=== PATIENT | male | born 1985 | race Caucasian/White ===

== ENCOUNTER 2017-01-08 17:49 | Emergency (ER) | payer MEDICAID ==
[~2017-01-08] VITALS: Ht 193 cm; Wt 113.4 kg
[~2017-01-08 17:49] MED LIST: IBUPROFEN800 MG PO; TAMIFLU 75MG CA75 MG PO; ZITHROMAX Z PA250 MG PO
[2017-01-08] MEDS ORDERED: HYDROCODONE/ACE1 TA5 PO (18:00)
[2017-01-08] MEDS ORDERED: BUSPAR 5MG TAB5 MG PO (18:00)
[2017-01-08] MEDS ORDERED: FLEXERIL10 MG PO (18:13)
[2017-01-08] MEDS ORDERED: IBUPROFEN800 MG PO (18:35)
--- NOTE | 2017-01-08 18:36 | Urgent Treatment Center Report ---
History of Present Issue Date/Time Seen by Provider 01/08/17 1802 Visit Reason Pt arrived:Walked Presenting Problem:PT HAS BEEN UNDER RT SHOULDER BLADE. PAIN INCREASES WITH MOVEMENT AND PRESSURE APPLIED. Location if Accident: Onset of symptoms date/time:/ or onset unknown for:MEDICAL HX UNKNOWN Have you (or family members/close friends) recently traveled outside the [place]? N If Yes, where/when: Have you had exposure to infectious disease within the past month? TB? Other? Specify: Patient state that he has been having pain around and under right shoulder blade area. State that pain increases with movement and tender to touch States that feels tight and hurts when he moves. States that when he stretches it helps with the pain for a moment then it tightens back up again feels like a muscle spasm ALLERGIES Coded Allergies: Penicillins (Mild, 11/24/16) codeine (Mild, 11/24/16) Home Medications Active Scripts Azithromycin (Zithromycin (Z-JOSELIN) 250MG Tab) 250 MG PO DAILY #6 TAB Prov: 11/24/16 Ibuprofen (Ibuprofen 800MG) 800 MG PO QIDP PRN pain #30 TAB Prov: 11/24/16 Reported Medications Buspirone Hcl (Buspirone HCl) 5 MG PO DAILY HYDROCODONE/ACETAMINOPHEN (Lortab 10-325 (generic) Tablet) 1 TAB PO Q6HP PRN KNEE PAIN History Medical History General CAD? No Angina: No [place]: No Hypertension? No Hyperlipidemia? No CHF? No DVT? No PE? No COPD? No Asthma? Yes Anemia? No GERD? No Gastric ulcers? No GI Bleed? No Hernia? No Thyroid Problems? No Hypothyroidism? No CVA? No Seizures? No Diabetes? No Renal Insuffiency? No UTI? No Stones? No BPH? No GB Disease: No Nephritic Syndrome? No Asplenia? No Hepatitis? No Sickle Cell Disease? No Arthritis? No Migraines? No Cataracts? No Glaucoma? No MRSA? No HIV? No TB? No Anxiety? No Depression? No Cancer? No More? No Immunization HX DT/Tetanus 1-4 YRS Flu NEVER Pneumonia NEVER Surgical Hx Previous Surgery?Y URETHERAL KNEE LEFT SURG Family History Family HX Diabetes Yes CAD Yes Hypertension Yes Hyperlipidemia Yes Cancer No TB Yes Social History Smoking Hx Smoker: Current Every Day Smoker Tobacco: Yes Type Cigarettes Packs/day < 1 Pack Alcohol Alcohol: No Review of Systems All Other Systems Reviewed and Negative Musculoskeletal muscle pain, muscle stiffness Physical Exam Vital Signs Vital Signs Date Time Temp Pulse Resp B/P Pulse O2 O2 Flow FiO2 Ox Delivery Rate 01/08 181 20 01/08 1756 99.1 64 20 121/69 100 General Appearance normal appearance, WD/WN, no apparent distress Respiratory Status Yes: trachea midline, chest symmetrical, non tender chest. No: respiratory distress. 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 No Results/Orders Current Medication Orders Sig/Tammie Start time Last Medication Dose Route Stop Time Status Admin Ketorolac 60 MG ONCE ONE 01/08 1815 DC 01/08 Tromethamine IM 01/09 1816 181 Orphenadrine Citrate 60 MG ONCE ONE 01/08 181 DC 01/08 IM 01/08 181 1811 Orphenadrine Citrate 0 .STK-MED ONE 01/08 1807 DC .ROUTE Ketorolac 0 .STK-MED ONE 01/08 180 DC Tromethamine .ROUTE Departure Departure Time of Disposition 1835 Disposition DC Home or Self Care(routine) Clinical Impression Primary Impression: Muscle spasm Condition STABLE Patient Instructions DI for Muscle Spasm, DI for Muscle Strain Additional Instructions Take medication as prescribed Return if needed Follow up with family doctor Discharge Counseling Counseled pt/family regarding diagnosis, medications/RX, home care, follow up needs Prescriptions Current Visit Scripts Cyclobenzaprine Hcl (Flexeril) 10 MG PO TID #18 TAB Ibuprofen (Ibuprofen 800MG) 800 MG PO QIDP PRN pain #30 TAB at 1835
[2017-01-08 18:44] VITALS: BP 121/69
--- OUTSIDE RECORDS SUMMARY | 2017-01-10 21:55 | External Medical Summary Rpt ---
Author Author , BENTON Hsu BENTON Address Unknown Phone [email or web address] Care Team Providers Care Board Mill Supervisor Name Role Phone A Alanis WARD MD PSC, A Unavailable Unavailable Alanis WARD MD PSC MARV ANTOINETTE, Unavailable Unavailable MARV ANTOINETTE MARV ANTOINETTE, Unavailable Unavailable MARV ANTOINETTE [facility], Unavailable Unavailable [facility], Unavailable Unavailable [facility] HARSHA CORBY, HARSHA Unavailable Unavailable [facility] HARSHA CORBY, HARSHA Unavailable Unavailable [facility] Un[facility], [facility] KILPELA, KILPELA Unavailable Unavailable KILPELA JEA, KILPELA Unavailable Unavailable JEA Roberta Mcleod MD, Unavailable Unavailable Roberta MACHADO GRE, Unavailable Unavailable JEANNETTE BASS, Unavailable Unavailable JEANNETTE BASS JOAQUIN, JOQAUIN Unavailable Unavailable JOAQUIN KIAH, JOAQUIN KIAH Unavailable Unavailable JOAQUIN KIAH, JOAQUIN KIAH Unavailable Unavailable Purpose Continuity of Care Document - 06-27-2013 through 2016 Problems Code Diagnosis DOS Provider Status I10 ESSENTIAL 11-28-2016 A Alanis WARD PRIMARY PSC HYPERTENSIO N [id number] BURN SECOND 11-28-2016 A Alanis WARD DEGREE RT PSC FOOT SUBSEQUENT ENCOUNTER L559 SUNBURN 11-24-2016 [facility] J309 ALLERGIC 10-14-2016 A Alanis WARD RHINITIS PSC UNSPECIFIED Z6831 BODY MASS 10-14-2016 A Alanis WARD INDEX BMI [facility] 31.0-31.9 ADULT Z2089 CONTACT W09-05-2016 [facility] COMMUNICABL E DISEASE Z23 ENCOUNTER 05-08-2016 A Alanis LINDA MD PSC IMMUNIZATIO N J069 ACUTE UPPER 02-08-2016 Basil WARD MD PSC RESPIRATORY INFECTION UNSPECIFIED G894 CHRONIC 08-17-2015 A Alanis WARD PAIN PSC SYNDROME M170 BILATERAL 07-14-2015 A Alanis WARD PRIMARY PSC OSTEOARTHRI TIS OF KNEE F44230 OTHER LONG 07-14-2015 [facility] CURRENT S DRUG THERAPY J40 BRONCHITIS 05-17-2015 A Alanis REDDING MD PSC SPECIFIED ACUTE OR CHRONIC J9801 ACUTE 05-08-2015 A Alanis WARD BRONCHOSPAS PSC M 3384 CHRONIC 01-12-2015 A Alanis WARD PAIN PSC SYNDROME 4659 ACUTE URIS 01-12-2015 A Alanis WARD OF PSC UNSPECIFIED SITE 4779 ALLERGIC 01-12-2015 A Alanis WARD RHINITIS PSC CAUSE UNSPECIFIED 7862 COUGH 01-12-2015 A Alanis WARD MD PSC 21358 OSTEOARTHRO 10-18-2014 A Alanis WARD SIS UNSPEC PSC WHETHER GEN/LOC LOWER LEG V720 EXAMINATION 09-14-2013 JEANNETTE OF EYES GRE AND VISION 305.1 305.1 06-28-2013 Frederick TOBACCO USE [facility] 789.01 789.01 06-28-2013 [facility] PAIN, RIGHT Hospital UPPER QUADRANT 789.06 789.06 06-28-2013 [facility] EPIGASTRIC 49062 ABDOMINAL 06-28-2013 [facility] PAIN, EPIGASTRIC 49968 ABDOMINAL 06-27-2013 HARSHA MIC PAIN, UNSPECIFIED SITE 7934 NONSPECIFIC 06-27-2013 MARV ABN ANTOINETTE FINDING RAD & OTH EXAM GI TRACT Allergies, Adverse Reactions, Alerts Type Drug Allergy Adverse Reaction to Substance Substance Reaction Severity Beta-Lactam Unknown Unknown Penicillin Unknown Unknown Codeine Unknown Mild Penicillin G Unknown Unknown Grape Extract Unknown Mild Medications Na ND Rx Da Fi Fi Am Da Di Ph RX Ph St me C No te ll ll ou ys ag ar # ys at rm s nt no ma ic us Or Da si cy ia de te s n re d HY 00 06 07 [address] 40 -2 -[address] ti OC 60 5- 1- 00 00 SI ve OD 12 20 20 0 49 DE ON 50 17 17 24 -A 5 57 PH CE AR TA MA MT CY NO PH OF N CY 10 NT -3 HI 25 AN A IN C IB 68 06 07 30 8 00 WA Ac UP 64 -1 -1 .0 00 L- ti RO 50 8- 4- 00 07 MA ve FE 53 20 20 49 RT N 15 17 17 40 80 4 88 PH 0 AR MG MA CY TA BL #5 ET 91 AZ 59 06 07 6. 5 00 WA Ac IT 76 -1 -1 00 00 L- ti HR 23 8- 4- 0 07 MA ve OM 06 20 20 49 RT YC 00 17 17 40 IN 1 87 PH AR 25 MA 0 CY MG #5 TA 91 BL ET BI 00 06 07 30 30 00 EA Ac SO 18 -0 -[address] ti NE 50 8- 7- 00 00 SI ve OL 77 20 20 48 DE OL 13 17 17 66 0 18 PH FU AR MA MA RA CY TE 5 OF CY MG NT HI TA AN B A IN C HY 00 05 06 12 [address] 40 -2 -[address] ti OC 60 6- 3- 00 00 SI ve OD 12 20 20 0 48 DE ON 50 17 17 90 -A 5 66 PH CE AR TA MA MT CY NO PH OF N CY 10 NT -3 HI 25 AN A IN C BI 00 05 06 30 30 00 EA Ac SO 18 -0 -[address] ti NE 50 8- 2- 00 00 SI ve OL 77 20 20 48 DE OL 13 17 17 66 0 18 PH FU AR MA MA RA CY TE 5 OF CY MG NT HI TA AN B A IN C NE 00 05 06 20 10 00 EA Ac ED 60 -0 -[address] ti NI 35 8- 2- 00 00 SI ve SO 33 20 20 48 DE NE 93 17 17 66 2 17 PH 20 AR MA MG CY TA OF BL CY ET NT HI AN A IN C HY 00 04 05 12 [address] 40 -2 -[address] ti OC 60 8- 6- 00 00 SI ve OD 12 20 20 0 48 DE ON 50 17 17 54 -A 5 10 PH CE AR TA MA MT CY NO PH OF N CY 10 NT -3 HI 25 AN A IN C HY 00 03 04 [address] 40 -3 -[address] ti OC 60 0- 8- 00 00 SI ve OD 12 20 20 0 48 DE ON 50 17 17 17 -A 5 51 PH CE AR TA MA MT CY NO PH OF N CY 10 NT -3 HI 25 AN A IN C OS 47 03 04 10 10 00 EA Ac EL 78 -3 -[address] ti TA 10 0- 8- 00 00 SI ve MT 47 20 20 48 DE 01 17 17 18 R 3 92 PH PH AR OS MA CY 75 OF MG CY NT CA HI PS AN UL A E IN C HY 00 02 03 [address] 40 -2 -[address] ti OC 60 7- 4- 00 00 SI ve OD 12 20 20 0 47 DE ON 50 17 17 77 -A 5 60 PH CE AR TA MA MT CY NO PH OF N CY 10 NT -3 HI 25 AN A IN C HY 00 01 02 [address] 40 -2 -[address] ti OC 60 8- 4- 00 00 SI ve OD 12 20 20 0 47 DE ON 50 17 17 40 -A 5 96 PH CE AR TA MA MT CY NO PH OF N CY 10 NT -3 HI 25 AN A IN C HY 00 12 01 [address] 40 -2 -[address] ti OC 60 9- 7- 00 00 SI ve OD 12 20 20 0 47 DE ON 50 16 17 06 -A 5 08 PH CE AR TA MA MT CY NO PH OF N CY 10 NT -3 HI 25 AN A IN C FA 63 01 0 No MO 32 -2 TI 30 0- Lo DI 73 20 ng NE 91 14 er 2 20 Ac ti MG ve /2 ML AL BA [address] 40 -2 ER 91 0- Lo IO [address] 60 14 er AT 5 IC Ac ti SA ve LI NE AL ME 00 01 0 No TO 40 -2 CL 93 0- Lo OP 41 20 ng RA 40 14 er MT 1 DE Ac ti 10 ve MG /2 ML AL ON 00 01 0 No DA 64 -2 NS 16 0- Lo ET 08 20 ng RO 02 14 er N 5 HC Ac L ti 4 ve MG /2 ML AL Mo 00 01 0 No rp 40 -2 hi 91 0- Lo ne 25 20 ng 83 14 er 4M 0 G/ Ac Ml ti ve Sy ri ng e Immunization Name Date Rout CVX Reac Dose Comm Prov Is Faci e tion ent ider Refu lity Give sed n IIV4 11-3 150 A C No A C 0-20 WRIG WRIG VACC 16 HT HT MD ROMERO PRES PSC PSC RV FREE 0.5 ML FOR IM USE IIV3 11-3 140 KILP No A C 0-20 NESTOR WRIG VACC 15 JEA HT PRES PSC ERVA TIVE FREE 0.5 ML DOSA GE IM USE Vital Signs 06-28-2013 00:53 Name Value Interpretat Reference Comment ion Range Body 98.2 [degF] Temperature BP 97 mm[Hg] Diastolic BP Systolic 164 mm[Hg] Heart 74 /min Rate/Pulse O2% 98 % Respiratory 20 /min Rate 06-27-2013 23:40 Name Value Interpretat Reference Comment ion Range BP 68 mm[Hg] Diastolic BP Systolic 139 mm[Hg] Heart 81 /min Rate/Pulse O2% 99 % Respiratory 20 /min Rate Results Labs Lab Lab Date Result Refere Interp Status Commen Order Detail nces retati t Range on COMPREHENSIVE METABOLIC PANEL (06-27-2013 23:30) Glucose 114 74-106 complet 014 mg/dL ed Bld-mCn 23:30 c BUN 10 7-18 complet Bld-mCn 014 mg/dL ed c 23:30 Creat 1.1 0.8-1.3 complet SerPl-m 014 mg/dL ed Cnc 23:30 Creat 156 50-200 complet Cl 014 ML/MIN ed predict 23:30 ed SerPl C-G-vRa te GFR/BSA 79 Greater complet .pred 014 ML/MIN than ed SerPl 23:30 60 Schwart z-vRate Sodium 141 136-145 complet SerPl-s 014 mmoL/L ed Cnc 23:30 Potassi 4.2 3.5-5.1 complet um 014 mmoL/L ed SerPl-s 23:30 Cnc Chlorid 102 98-107 complet e 014 mmoL/L ed SerPl-s 23:30 Cnc CO2 30 21.0-32 complet SerPl-s 014 mmoL/L .0 ed Cnc 23:30 Calcium 9.3 8.5-10. complet 014 mg/dL 1 ed SerPl-m 23:30 Cnc Prot 7.8 6.4-8.2 complet SerPl-m 014 gm/dL ed Cnc 23:30 Albumin 4.6 3.4-5.0 complet 014 gm/dL ed SerPl-m 23:30 Cnc Globuli 3.2 1.3-3.2 complet n 014 gm/dL ed Ser-mCn 23:30 c Albumin 1.4 UNK 1.1-1.8 complet /Glob 014 ed SerPl-m 23:30 Rto Bilirub 0.5 0.2-1.0 complet 014 mg/dL ed SerPl-m 23:30 Cnc AST 17 U/L 15-37 complet SerPl-c 014 ed Cnc 23:30 ALT 39 U/L 12-78 complet SerPl-c 014 ed Cnc 23:30 ALP 117 U/L 50-136 complet SerPl-c 014 ed Cnc 23:30 Amylase SerPl-cCnc (06-27-2013 23:30) Amylase 48 U/L 25-115 complet 014 ed SerPl-c 23:30 Cnc LIPASE (06-27-2013 23:30) LIPASE 92 U/L 73-393 complet 014 ed 23:30 CBC with AUTO DIFF (06-27-2013 23:30) WBC # 06-27-2 10.5 4.8-10. complet Bld 014 K/MM3 8 ed Auto 23:30 RBC # 06-27-2 5.88 4.6-6.2 complet Bld 014 M/mm3 ed Auto 23:30 Hgb 06-27- 16.9 14.1-18 complet Bld-mCn 014 g/dL .0 ed c 23:30 Hct Fr 50.7 % 42.0-52 complet Bld 014 .0 ed 23:30 MCV RBC 06-27- 86.2 fl 82.2-97 complet 014 .8 ed 23:30 MCH RBC 06-27-2 28.8 pg 27-31.2 complet Qn 014 ed Auto 23:30 MEAN 06-27- 33.5 31.8-35 complet CORPUSC 014 g/dl .4 ed ULAR 23:30 HGB CONC RDW RBC 06-27-2 14.0 % 11.5-17 complet Auto 014 .5 ed 23:30 Platele 06-27- 198 142-424 complet t Bld 014 K/mm3 ed Ql 23:30 Manual MEAN 06-27-2 9.5 fl 7.4-10. complet PLATELE 014 4 ed T 23:30 VOLUME Granulo 06-27-2 71.1 % 37.0-80 complet cytes 014 .0 ed Fr Bld 23:30 Auto LYMPH % --2 22.8 % 10-50 complet 014 ed 23:30 Monocyt -19-2 4.9 % 1.7-9.3 complet es Fr 014 ed Bld 23:30 Auto Eosinop -19-2 1.0 % 0.1-12. complet hil Fr 014 0 ed Bld 23:30 Auto Basophi 06-27-2 0.2 % 0.1-2.0 complet ls Fr 014 ed Bld 23:30 Auto Granulo 06-27-2 7.4 1.3-8.0 complet cytes # 014 K/mm3 ed Bld 23:30 Auto Lymphoc 06-27-2 2.4 0.7-4.5 complet ytes Fr 014 K/mm3 ed Bld 23:30 Auto Monocyt 06-27-2 0.5 0.1-1.0 complet es # 014 K/mm3 ed Bld 23:30 Auto Eosinop 06-27-2 0.1 0.0-0.4 complet hil # 014 K/mm3 ed Bld 23:30 Auto Basophi 19-2 0.0 0-0.2 complet ls # 014 K/MM3 ed Bld 23:30 Auto URINALYSIS/COMPLETE (06-27-2013 23:30) URINE 06-27- YELLOW YELLOW complet COLOR 014 ed 23:30 URINE 06-27- CLEAR CLEAR complet APPEARA 014 ed NCE 23:30 URINE NEGATIV NEG complet GLUCOSE 014 E ed - 23:30 DIPSTIC K URINE 06-27-2 NEGATIV NEG complet BILIRUB 014 E ed IN - 23:30 DIPSTIC K URINE 06-27-2 NEGATIV NEG complet KETONE 014 E mg/dL ed 23:30 URINE 06-27-2 1.015 1.005-1 complet SPECIFI 014 UNK .030 ed C 23:30 GRAVITY URINE TRACE-I NEG complet BLOOD 014 NTACT ed 23:30 URINE 06-27- 6.0 UNK 5.0-8.5 complet PH 014 ed 23:30 URINE NEGATIV NEG complet PROTEIN 014 E mg/dL ed - 23:30 DIPSTIC K URINE 0.2 NEG complet UROBILI 014 E.U./dL ed NOGEN - 23:30 DIPSTIC K URINE NEGATIV NEG complet NITRATE 014 E ed - 23:30 DIPSTIC K URINE NEGATIV NEG complet LEUK 014 E ed ESTERAS 23:30 E URINE 3-5 0 complet RBC 014 rbc/hpf ed 23:30 URINE OCC O complet WBC 014 wbc/hpf ed 23:30 Procedures Procedure DOS Code Location Performer Comment THERAPEUT 26087 A C KILPELA IC 7 ED ROMERO PROPHYLAC PSC TIC/DX INJECTION SUBQ/IM INJ J0702 A C KILPELA BETAMETHA 7 ED ROMERO SONAlexy PSC ACETATE & PHOSPHATE 3 MG INJECTION J1030 A C KILPELA 7 ED ROMERO METHYLPRE PSC DNISOLONE ACETATE 40 MG IM ADM 31462 A C A C PRQ ID 6 ED WARD MD SUBQ/IM PSC PSC NJXS 1 VACCINE IIV4 VACC 45030 A C A C PRESRV 6 ED WARD MD FREE 0.5 PSC PSC ML FOR IM USE DRUG TEST 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;I IES IES NSTRUMENT ED CHEMISTRY ANLYZER DRUG TST G0477 A C JOAQUIN KIAH PRESUMP;C 6 ED ROMERO PBL BEING PSC READ DC OPT OBV ONLY DRUG TST G0483 [facility]OS DEFINITV [address] ID IES IES METH P DAY 22/MORE DR CL INJ J0702 A C KILPELA BETAMETHA 5 ED SNOWDEN PSC ACETATE & PHOSPHATE 3 MG THERAPEUT 51919 A C KILPELA IC 5 ED ROMERO JEBasil PROPHYLAC PSC TIC/DX INJECTION SUBQ/IM THERAPEUT 42341 A C KILPELA IC 5 ED ROMERO JEBasil PROPHYLAC PSC TIC/DX INJECTION SUBQ/IM IM ADM 11594 A C KILPELA PRQ ID 5 ED ROMERO JEA SUBQ/IM PSC NJXS 1 VACCINE IIV3 VACC 65577 A Alanis PRAKASH 5 ED SORIA PRESERVAT PSC MELLISSA FREE 0.5 ML DOSAGE IM USE INJECTION J1030 A Alanis PRAKASH 5 ED SORIA METHYLPRE PSC DNISOLONE ACETATE 40 MG INJECTION J1030 A Alanis PRAKASH 5 ED SORIA METHYLPRE PSC DNISOLONE ACETATE 40 MG INJ J0702 A Alanis PRAKASH BETAMETHA 5 ED ROMERO JEA SONE PSC ACETATE & PHOSPHATE 3 MG THERAPEUT 57751 A Alanis PRAKASH IC 5 ED SORIA PROPHYLAC PSC TIC/DX INJECTION SUBQ/IM DETERMINA 86510 [facility] 4 GRE GRE REFRACTIV E STATE OPHTH 15280 [facility] 4 GRE GRE XM&EVAL COMPRE NEW PT 1/> VST RADEX ABD 46447 MARV MARV COMPL 4 ANTOINETTE ANTOINETTE AQT ABD W/S/E/D VIEWS 1 VIEW CH Encounters Encounter Start End Date Code Location Performer Type Date OFFICE 78350 A Alanis DENNEY 7 7 ED ROMERO T VISIT [facility] 15 MINUTES [facility]OSP[facility] T OFFICE 09704 A Alanis DENNEY 7 7 ED ROMERO T VISIT PSC 15 MINUTES OFFICE 41866 [facility]LE[facility]IR[facility] 7 [facility] T VISIT 5 INC MINUTES [facility] T OFFICE 68428 A Alanis VILLASENOR 6 6 ED ROMERO T VISIT PSC 15 MINUTES OFFICE 98158 A Alanis VILLASENOR 6 6 ED ROMERO T VISIT PSC 15 MINUTES OFFICE 56160 A Alanis VILLASENOR 6 6 ED ROMERO T VISIT PSC 15 MINUTES OFFICE 37165 A C KILPELA OUTPATIEN 5 5 ED SORIA T VISIT PSC 15 MINUTES OFFICE 48081 A C KILPELA OUTPATIEN 5 5 ED SORIA T VISIT PSC 15 MINUTES OFFICE 08363 A C KILPELA OUTPATIEN 5 5 ED SORIA T VISIT PSC 15 MINUTES OFFICE 22648 A C KILPELA OUTPATIEN 5 5 ED SORIA T VISIT PSC 15 MINUTES OFFICE 85473 A C JOAQUIN KIAH OUTPATIEN 5 5 ED ROMERO T VISIT PSC 15 MINUTES OFFICE 98962 A C JOAQUIN KIAH OUTPATIEN 4 4 ED ROMERO T VISIT PSC 10 MINUTES OFFICE 55410 JOAQUIN KIAH JOAQUIN KIAH OUTPATIEN 4 4 T VISIT 15 MINUTES OFFICE 03963 JOAQUIN KIAH JOAQUIN KIAH OUTPATIEN 4 4 T VISIT 15 MINUTES OFFICE 11496 JOAQUIN KIAH JOAQUIN KIAH OUTPATIEN 4 4 T VISIT 15 MINUTES OFFICE 66056 JOAQUIN KIAH JOAQUIN KIAH OUTPATIEN 4 4 T VISIT 15 MINUTES Emergency PEARL Mcleod MD (ER) 4 23:13 4 00:56 [facility] EMERGENCY 84587 HARSHA MCLEOD 4 4 CORBY CORBY DEPARTMEN T VISIT HIGH/URGE NT SEVERITY
--- OUTSIDE RECORDS SUMMARY | 2017-01-10 21:55 | External Medical Summary Rpt ---
Author Author , BENTON Hsu BENTON Address Unknown Phone [email or web address] Care Team Providers Care Sap Grc Security Name Role Phone A Alanis WARD MD [...] JEANNETTE BASS, Unavailable Unavailable JEANNETTE BASS JOAQUIN, JOAQUIN Unavailable Unavailable JOAQUIN KIAH, JOAQUIN KIAH Unavailable Unavailable JOAQUIN KIAH, JOAQUIN KIAH Unavailable Unavailable Purpose Continuity of Care Document - 06-27-2013 through 2016 Problems Code Diagnosis DOS Provider Status I10 ESSENTIAL 11-28-2016 A Alanis WARD PRIMARY PSC HYPERTENSIO N [id number] BURN SECOND 11-28-2016 A Alanis WARD DEGREE RT PSC FOOT SUBSEQUENT ENCOUNTER L559 SUNBURN 11-24-2016 [facility] J309 ALLERGIC 10-14-2016 A Alanis WARD RHINITIS PSC UNSPECIFIED Z6831 BODY MASS 10-14-2016 A Alanis WARD INDEX BMI [facility] 31.0-31.9 ADULT Z2089 CONTACT W09-05-2016 [facility] COMMUNICABL E DISEASE Z23 ENCOUNTER 05-08-2016 A Alanis LINDA MD PSC IMMUNIZATIO N J069 ACUTE UPPER 02-08-2016 Basil WARD MD PSC RESPIRATORY INFECTION UNSPECIFIED G894 CHRONIC 08-17-2015 A Alanis WARD PAIN PSC SYNDROME M170 BILATERAL 07-14-2015 A Alanis WARD PRIMARY PSC OSTEOARTHRI TIS OF KNEE L71460 OTHER LONG 07-14-2015 ETH[facility] TERM LABORATORIE CURRENT [...] COUGH 01-12-2015 A Alanis WARD MD PSC 86818 OSTEOARTHRO 10-18-2014 A Alanis WARD SIS UNSPEC PSC WHETHER GEN/LOC LOWER LEG V720 EXAMINATION 09-14-2013 JEANNETTE OF EYES GRE AND VISION 305.1 305.1 06-28-2013 Norris TOBACCO USE [facility] 789.01 789.01 06-28-2013 [facility] PAIN, RIGHT Hospital UPPER QUADRANT 789.06 789.06 06-28-2013 [facility] EPIGASTRIC 00728 ABDOMINAL 06-28-2013 [facility] PAIN, EPIGASTRIC 24525 ABDOMINAL 06-27-2013 HARSHA MIC PAIN, UNSPECIFIED SITE [...] 5 57 PH CE AR TA MA MD CY NO PH OF N CY 10 [...] 18 -0 -[address] ti NM 50 8- 7- 00 00 SI ve [...] 5 66 PH CE AR TA MA MD CY NO PH OF N CY 10 NT -3 HI 25 AN A IN C BI 00 05 06 30 30 00 EA Ac SO 18 -0 -[address] ti NM 50 8- 2- 00 00 SI ve OL 77 20 20 48 DE OL 13 17 17 66 0 18 PH FU AR MA MA RA CY TE 5 OF CY MG NT HI TA AN B A IN C NM 00 05 06 20 10 00 EA [...] 5 10 PH CE AR TA MA MD CY NO PH OF N CY 10 NT -3 HI 25 AN A IN C HY 00 03 04 [address] 40 -3 -[address] ti OC 60 0- 8- 00 00 SI ve OD 12 20 20 0 48 DE ON 50 17 17 17 -A 5 51 PH CE AR TA MA MD CY NO PH OF N CY 10 NT -3 HI 25 AN A IN C OS 47 03 04 10 10 00 EA Ac EL 78 -3 -[address] ti TA 10 0- 8- 00 00 SI ve MD 47 20 20 48 DE 01 17 [...] 5 60 PH CE AR TA MA MD CY NO PH OF N CY 10 NT -3 HI 25 AN A IN C HY 00 01 02 [address] 40 -2 -[address] ti OC 60 8- 4- 00 00 SI ve OD 12 20 20 0 47 DE ON 50 17 17 40 -A 5 96 PH CE AR TA MA MD CY NO PH OF N CY 10 NT -3 HI 25 AN A IN C HY 00 12 01 [address] 40 -2 -[address] ti OC 60 9- 7- 00 00 SI ve OD 12 20 20 0 47 DE ON 50 16 17 06 -A 5 08 PH CE AR TA MA MD CY NO PH OF N CY 10 [...] 41 20 ng RA 40 14 er MD 1 DE Ac ti 10 ve MG [...] Procedure DOS Code Location Performer Comment THERAPEUT 19989 A C KILPELA IC 7 ED ROMERO PROPHYLAC PSC TIC/DX INJECTION SUBQ/IM INJ J0702 A C KILPELA BETAMETHA 7 ED ROMERO SONAlexy PSC ACETATE & PHOSPHATE 3 MG INJECTION J1030 A C KILPELA 7 ED ROMERO METHYLPRE PSC DNISOLONE ACETATE 40 MG IM ADM 54587 A C A C PRQ ID 6 ED WARD MD SUBQ/IM PSC PSC NJXS 1 VACCINE IIV4 VACC 19939 A C A C PRESRV 6 ED [...] PSC ACETATE & PHOSPHATE 3 MG THERAPEUT 04492 A C KILPELA IC 5 ED ROMERO JEBasil PROPHYLAC PSC TIC/DX INJECTION SUBQ/IM THERAPEUT 75282 A C KILPELA IC 5 ED ROMERO JEBasil PROPHYLAC PSC TIC/DX INJECTION SUBQ/IM IM ADM 94993 A C KILPELA PRQ ID 5 ED ROMERO JEA SUBQ/IM PSC NJXS 1 VACCINE IIV3 VACC 75506 A Alanis PRAKASH 5 ED SORIA PRESERVAT PSC MELLISSA FREE 0.5 ML DOSAGE IM USE INJECTION J1030 A Alanis PRAKASH 5 ED SORIA METHYLPRE PSC DNISOLONE ACETATE 40 MG INJECTION J1030 A Alanis PRAKASH 5 ED SORIA METHYLPRE PSC DNISOLONE ACETATE 40 MG INJ J0702 A Alanis PRAKASH BETAMETHA 5 ED ROMERO JEA SONE PSC ACETATE & PHOSPHATE 3 MG THERAPEUT 88119 A Alanis PRAKASH IC 5 ED SORIA PROPHYLAC PSC TIC/DX INJECTION SUBQ/IM DETERMINA 34382 [facility] 4 GRE GRE REFRACTIV E STATE OPHTH 56674 [facility] 4 GRE GRE XM&EVAL COMPRE NEW PT 1/> VST RADEX ABD 06386 MARV MARV COMPL 4 ANTOINETTE ANTOINETTE AQT ABD W/S/E/D VIEWS 1 VIEW CH Encounters Encounter Start End Date Code Location Performer Type Date OFFICE 98790 A Alanis DENNEY 7 7 ED ROMERO T VISIT [facility] 15 MINUTES [facility] T OFFICE 45993 A Alanis DENNEY 7 7 ED ROMERO T VISIT PSC 15 MINUTES OFFICE 51989 [facility] 7 [facility] T [facility] 5 INC MIN[facility]ES [facility] T OFFICE 94273 A Alanis VILLASENOR 6 6 ED ROMERO T VISIT PSC 15 MINUTES OFFICE 83271 A Alanis VILLASENOR 6 6 ED ROMERO T VISIT PSC 15 MINUTES OFFICE 54605 A Alanis VILLASENOR 6 6 ED ROMERO T VISIT PSC 15 MINUTES OFFICE 59287 A C KILPELA OUTPATIEN 5 5 ED SORIA T VISIT PSC 15 MINUTES OFFICE 26573 A C KILPELA OUTPATIEN 5 5 ED SORIA T VISIT PSC 15 MINUTES OFFICE 43163 A C KILPELA OUTPATIEN 5 5 ED SORIA T VISIT PSC 15 MINUTES OFFICE 11778 A C KILPELA OUTPATIEN 5 5 ED SORIA T VISIT PSC 15 MINUTES OFFICE 18272 A C JOAQUIN KIAH OUTPATIEN 5 5 ED ROMERO T VISIT PSC 15 MINUTES OFFICE 44938 A C JOAQUIN KIAH OUTPATIEN 4 4 ED ROMERO T VISIT PSC 10 MINUTES OFFICE 46184 JOAQUIN KIAH JOAQUIN KIAH OUTPATIEN 4 4 T VISIT 15 MINUTES OFFICE 82290 JOAQUIN KIAH JOAQUIN KIAH OUTPATIEN 4 4 T VISIT 15 MINUTES OFFICE 06644 JOAQUIN KIAH JOAQUIN KIAH OUTPATIEN 4 4 T VISIT 15 MINUTES OFFICE 59357 JOAQUIN KIAH JOAQUIN KIAH OUTPATIEN 4 4 T VISIT 15 MINUTES Emergency PEARL Mcleod MD (ER) 4 23:13 4 00:56 [facility] EMERGENCY 65910 HARSHA MCLEOD 4 4 CORBY CORBY DEPARTMEN T VISIT HIGH/URGE NT SEVERITY
--- OUTSIDE RECORDS SUMMARY | 2017-01-10 21:56 | External Medical Summary Rpt ---
Author Author [employer] Organization [employer] Address Unknown Phone Unavailable
--- OUTSIDE RECORDS SUMMARY | 2017-01-10 21:56 | External Medical Summary Rpt ---
Author Author , BENTON TARIQALIX Address Unknown Phone [email or web address] Care Team Providers Care Crm Administrator Name Role Phone A Alanis WARD MD [...] Unavailable KILPELA JEA, KILPELA Unavailable Unavailable JEA JEANNETTE GRE, Unavailable Unavailable JEANNETTE GRE JEANNETTE GRE, Unavailable Unavailable JEANNETTE GRE JOAQUIN, JOAQUIN Unavailable Unavailable JOAQUIN KIAH, JOAQUIN KIAH Unavailable Unavailable JOAQUIN KIAH, JOAQUIN KIAH Unavailable Unavailable Purpose Continuity of Care Document - 06-27-2013 through 2016 Problems Code Diagnosis DOS Provider Status I10 ESSENTIAL 11-28-2016 A Alanis WARD PRIMARY PSC HYPERTENSIO N [id number] BURN SECOND 11-28-2016 A Alanis WARD DEGREE RT [facility] FOOT SUBSEQUENT ENCOUNTER L559 SUNBURN 11-24-2016 [facility] J309 ALLERGIC 10-14-2016 A Alanis WARD RHINITIS [facility] UNSPECIFIED Z6831 BODY MASS 10-14-2016 A Alanis WARD INDEX BMI [facility] 31.0-31.9 ADULT Z2089 CONTACT W/ 09-05-2016 [facility]TH [facility] COMMUNICABL E DISEASE Z23 ENCOUNTER 05-08-2016 A Alanis LINDA MD PSC IMMUNIZATIO N J069 ACUTE UPPER 02-08-2016 A Alanis WARD MD PSC RESPIRATORY INFECTION UNSPECIFIED G894 CHRONIC 08-17-2015 A Alanis WARD PAIN PSC SYNDROME M170 BILATERAL 07-14-2015 A Alanis SILVER MD PSC OSTEOARTHRI TIS OF KNEE [id number] OTHER LONG 07-14-2015 [facility] CURRENT S DRUG THERAPY J40 BRONCHITIS 05-17-2015 A Alanis REDDING MD PSC SPECIFIED ACUTE OR CHRONIC J9801 ACUTE 05-08-2015 A Alanis WARD BRONCHOSPAS PSC M 3384 CHRONIC 01-12-2015 A Alanis WARD PAIN PSC SYNDROME 4659 ACUTE URIS 01-12-2015 A Alanis JIMENEZ PSC UNSPECIFIED SITE 4779 ALLERGIC 01-12-2015 A Alanis WARD RHINITIS PSC CAUSE UNSPECIFIED 7862 COUGH 01-12-2015 A Alanis WARD MD PSC 03777 OSTEOARTHRO 10-18-2014 A Alains WARD SIS UNSPEC PSC WHETHER GEN/LOC LOWER LEG V720 EXAMINATION 09-14-2013 JEANNETTE [facility] 75137 ABDOMINAL 06-28-2013 JOAQUIN KIAH PAIN, EPIGASTRIC 32686 ABDOMINAL 06-27-2013 HARSHA CORBY PAIN, UNSPECIFIED SITE 7934 NONSPECIFIC 06-27-2013 MARV ABN ANTOINETTE FINDING RAD & OTH EXAM GI TRACT Medications Na ND Rx Da Fi Fi [...] 5 57 PH CE AR TA MA [place] CY NO PH OF N CY 10 [...] 18 -0 -[address] ti DE 50 8- 7- 00 00 SI ve [...] 5 66 PH CE AR TA MA [place] CY NO PH OF N CY 10 NT -3 HI 25 AN A IN C BI 00 05 06 30 30 00 EA Ac SO 18 -0 -[address] ti DE 50 8- 2- 00 00 SI ve OL 77 20 20 48 DE OL 13 17 17 66 0 18 PH FU AR MA MA RA CY TE 5 OF CY MG NT HI TA AN B A IN C DE 00 05 06 20 10 00 EA [...] 5 10 PH CE AR TA MA AK CY NO PH OF N CY 10 NT -3 HI 25 AN A IN C HY 00 03 04 [address] 40 -3 -[address] ti OC 60 0- 8- 00 00 SI ve OD 12 20 20 0 48 DE ON 50 17 17 17 -A 5 51 PH CE AR TA MA AK CY NO PH OF N CY 10 NT -3 HI 25 AN A IN C OS 47 03 04 10 10 00 EA Ac EL 78 -3 -[address] ti TA 10 0- 8- 00 00 SI ve AK 47 20 20 48 DE 01 17 [...] 5 60 PH CE AR TA MA AK CY NO PH OF N CY 10 NT -3 HI 25 AN A IN C HY 00 01 02 12 [address] 40 -2 -[address] ti OC 60 8- 4- 00 00 SI ve OD 12 20 20 0 47 DE ON 50 17 17 40 -A 5 96 PH CE AR TA MA AK CY NO PH OF N CY 10 NT -3 HI 25 AN A IN C HY 00 12 01 [address] 40 -2 -[address] ti OC 60 9- 7- 00 00 SI ve OD 12 20 20 0 47 DE ON 50 16 17 06 -A 5 08 PH CE AR TA MA [place] CY NO PH OF N CY 10 NT -3 HI 25 AN A IN C Immunization Name Date Rout CVX Reac Dose Comm Prov Is Faci e tion ent ider Refu lity Give sed n IIV4 11- 150 A C No A C 0-20 WRIG WRIG VACC 16 HT DILLAN ROMERO MD PRES PSC PSC RV FREE 0.5 ML FOR IM USE IIV3 11- 140 KILP No A C 0-20 NESTOR WRIG VACC 15 JEA HT PRES PSC ERVA TIVE FREE 0.5 ML DOSA GE IM USE Procedures Procedure DOS Code Location Performer Comment INJ J0702 A C KILPELA BETAMETHA 7 ED ROMERO SONE PSC ACETATE & PHOSPHATE 3 MG INJECTION J1030 A C KILPELA 7 ED ROMERO METHYLPRE PSC DNISOLONE ACETATE 40 MG THERAPEUT 08135 A C CAROL ANNPEILYA IC 7 ED ROMERO PROPHYLAC PSC TIC/DX INJECTION SUBQ/IM IIV4 VACC 73073 A C A C PRESRV 6 ED WARD MD FREE 0.5 PSC PSC ML FOR IM USE IM ADM 69776 A C A C PRQ ID 6 ED WARD MD SUBQ/IM PSC PSC NJXS 1 VACCINE DRUG TEST 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;I IES IES NSTRUMENT ED CHEMISTRY ANLYZER DRUG TST G0483 ETHOS ETHOS DEFINITV [address] ID IES IES METH P DAY 22/MORE DR GAMBLE DRUG TST G0477 A C JOAQUIN KIAH PRESUMP;C 6 ED ROMERO PBL BEING PSC READ DC OPT OBV ONLY THERAPEUT 69567 A C CAROL ANNPELA IC 5 ED ROMERO JEA PROPHYLAC PSC TIC/DX INJECTION SUBQ/IM INJ J0702 A C KILPELA BETAMETHA 5 ED ROMERO JEA SONE PSC ACETATE & PHOSPHATE 3 MG INJECTION J1030 A C KILPELA 5 ED ROMERO JEA METHYLPRE PSC DNISOLONE ACETATE 40 MG THERAPEUT 83471 A Alanis PRAKASH IC 5 ED ROMERO JEBasil PROPHYLAC PSC TIC/DX INJECTION SUBQ/IM IIV3 VACC 58147 A Alanis PRAKASH 5 ED ROMERO JEBasil PRESERVAT PSC MELLISSA FREE 0.5 ML DOSAGE IM USE IM ADM 67802 A Alanis PRAKASH PRQ ID 5 ED ROMERO JEBasil SUBQ/IM PSC NJXS 1 VACCINE INJ J0702 A Alanis PRAKASH BETAMETHA 5 ED ROMERO JEBasil SONE PSC ACETATE & PHOSPHATE 3 MG INJECTION J1030 A Alanis PRAKASH 5 ED SORIA METHYLPRE PSC DNISOLONE ACETATE 40 MG THERAPEUT 47287 A Alanis PRAKASH IC 5 ED ROMERO JEA PROPHYLAC PSC TIC/DX INJECTION SUBQ/IM OPHTH 54554 JEANNETTE [facility] 4 GRE GRE XM&EVAL COMPRE NEW PT 1/> VST DETERMINA 93797 JEANNETTE JEANNETTE TION 4 GRE GRE REFRACTIV E [place] RADEX ABD 31202 MARV MARV COMPL 4 ANTOINETTE ANTOINETTE AQT ABD W/S/E/D VIEWS 1 VIEW CH Encounters Encounter Start End Date Code Location Performer Type Date OFFICE 64237 A Alanis DENNEY 7 7 ED ROMERO T VISIT [facility] 15 [facility]UT[facility] 7 [facility] T OFFICE 15040 A Alanis PRAKASH OUTPATIEN 7 7 ED ROMERO T VISIT [facility]ES [facility] T OFFICE 22518 [facility] DENNEY 7 7 [facility] T VISIT 5 INC MINUTES OFFICE 03792 A Alanis DUPONT OUTPATIEN 6 6 ED ROMERO T VISIT PSC 15 MINUTES OFFICE 83299 A Alanis DUPONT OUTELLI 6 6 ED ROMERO T VISIT PSC 15 MINUTES OFFICE 52173 A C JOAQUIN KIAH OUTPATIEN 6 6 ED ROMERO T VISIT PSC 15 MINUTES OFFICE 59111 A C KILPELA OUTPATIEN 5 5 ED SORIA T VISIT PSC 15 MINUTES OFFICE 17135 A C KILPELA OUTPATIEN 5 5 ED SORIA T VISIT PSC 15 MINUTES OFFICE 04763 A C KILPELA OUTPATIEN 5 5 ED SORIA T VISIT PSC 15 MINUTES OFFICE 69320 A C KILPELA OUTPATIEN 5 5 ED SORIA T VISIT PSC 15 MINUTES OFFICE 07416 A C JOAQUIN KIAH OUTPATIEN 5 5 ED ROMERO T VISIT PSC 15 MINUTES OFFICE 81732 A C JOAQUIN KIAH OUTPATIEN 4 4 ED ROMERO T VISIT PSC 10 MINUTES OFFICE 48389 JOAQUIN KIAH JOAQUIN KIAH OUTPATIEN 4 4 T VISIT 15 MINUTES OFFICE 97547 JOAQUIN KIAH MULLENES KIAH OUTPATIEN 4 4 T VISIT 15 MINUTES OFFICE 69621 JOAQUIN KIAH JOAQUIN KIAH OUTPATIEN 4 4 T VISIT 15 MINUTES OFFICE 11507 JOAQUIN KIAH JOAQUIN KIAH OUTPATIEN 4 4 T VISIT 15 MINUTES EMERGENCY 72955 HARSHA MCLEOD 4 4 CORBY CORBY DEPARTMEN T VISIT HIGH/URGE NT SEVERITY
--- OUTSIDE RECORDS SUMMARY | 2017-01-10 21:56 | External Medical Summary Rpt ---
Demographics Preferred Language Croatian Marital Status Unknown Anglican Affiliation Unknown Race Unknown Ethnic Group Unknown Author Author , BENTON BHARDWAJ Address Unknown Phone Immunization Unable to retrieve immunization data due to connection failure with Immunization Registry. Please try again later.
--- OUTSIDE RECORDS SUMMARY | 2017-01-10 21:56 | External Medical Summary Rpt ---
Author Author , BENTON TARIQALIX Address Unknown Phone [email or web address] Care Team Providers Care Morphology Teacher Name Role Phone A Alanis WARD MD [...] A Alanis WARD PRIMARY PSC HYPERTENSIO N [id number] BURN SECOND 11-28-2016 A Alanis WARD DEGREE RT [facility] FOOT SUBSEQUENT ENCOUNTER L559 [place]URN 11-24-2016 [facility] J309 ALLERGIC 10-14-2016 A Alanis WARD RHINITIS [facility] UNSPECIFIED Z6831 BODY MASS 10-14-2016 A Alanis WARD INDEX BMI [facility] 31.0-31.9 ADULT Z2089 CONTACT W/ 09-05-2016 [facility] COMMUNICABL E DISEASE Z23 ENCOUNTER 05-08-2016 A Alanis LINDA MD PSC IMMUNIZATIO N J069 ACUTE UPPER 02-08-2016 A Alanis WARD MD PSC RESPIRATORY INFECTION UNSPECIFIED G894 CHRONIC 08-17-2015 A Alanis WARD PAIN PSC SYNDROME 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 BILATERAL 07-14-2015 A Alanis SILVER MD PSC OSTEOARTHRI TIS OF KNEE R79324 OTHER LONG 07-14-2015 [facility] TERM LABORATORIE CURRENT [...] COUGH 01-12-2015 A Alanis WARD MD PSC 02396 OSTEOARTHRO 10-18-2014 A Alanis WARD SIS UNSPEC PSC WHETHER GEN/LOC LOWER LEG V720 EXAMINATION 09-14-2013 JEANNETTE [facility] 71564 ABDOMINAL 06-28-2013 JOAQUIN KIAH PAIN, EPIGASTRIC 91424 ABDOMINAL 06-27-2013 HARSHA CORBY PAIN, UNSPECIFIED SITE [...] 5 57 PH CE AR TA MA [place] CY NO PH OF N CY 10 [...] 18 -0 -[address] ti [place] 50 8- 7- 00 00 SI ve [...] 5 66 PH CE AR TA MA [place] CY NO PH OF N CY 10 NT -3 HI 25 AN A IN C BI 00 05 06 30 30 00 EA Ac SO 18 -0 -[address] ti [place] 50 8- 2- 00 00 SI ve OL 77 20 20 48 DE OL 13 17 17 66 0 18 PH FU AR MA MA RA CY TE 5 OF CY MG NT HI TA AN B A IN C KS 00 05 06 20 10 00 EA [...] 5 10 PH CE AR TA MA [place] CY NO PH OF N CY 10 NT -3 HI 25 AN A IN C HY 00 03 04 [address] 40 -3 -[address] ti OC 60 0- 8- 00 00 SI ve OD 12 20 20 0 48 DE ON 50 17 17 17 -A 5 51 PH CE AR TA MA [place] CY NO PH OF N CY 10 NT -3 HI 25 AN A IN C OS 47 03 04 10 10 00 EA Ac EL 78 -3 -[address] ti TA 10 0- 8- 00 00 SI ve OH 47 20 20 48 DE 01 17 [...] 5 60 PH CE AR TA MA [place] CY NO PH OF N CY 10 NT -3 HI 25 AN A IN C HY 00 01 02 [address] 40 -2 -[address] ti OC 60 8- 4- 00 00 SI ve OD 12 20 20 0 47 DE ON 50 17 17 40 -A 5 96 PH CE AR TA MA [place] CY NO PH OF N CY 10 NT -3 HI 25 AN A IN C HY 00 12 01 [address] 40 -2 -[address] ti OC 60 9- 7- 00 00 SI ve OD 12 20 20 0 47 DE ON 50 16 17 06 -A 5 08 PH CE AR TA MA [place] CY NO PH OF N CY 10 [...] METHYLPRE PSC DNISOLONE ACETATE 40 MG THERAPEUT 41705 A C CAROL ANNPEILYA IC 7 ED ROMERO PROPHYLAC PSC TIC/DX INJECTION SUBQ/IM IIV4 VACC 29719 A C A C PRESRV 6 ED WARD MD FREE 0.5 PSC PSC ML FOR IM USE IM ADM 92455 A C A C PRQ ID 6 [...] PSC READ DC OPT OBV ONLY THERAPEUT 82260 A C CAROL ANNPELA IC 5 ED ROMERO JEA PROPHYLAC PSC TIC/DX INJECTION SUBQ/IM INJ J0702 A C KILPELA BETAMETHA 5 ED ROMERO JEA SONE PSC ACETATE & PHOSPHATE 3 MG INJECTION J1030 A C KILPELA 5 ED ROMERO JEA METHYLPRE PSC DNISOLONE ACETATE 40 MG THERAPEUT 69601 A Alanis PRAKASH IC 5 ED ROMERO JEBasil PROPHYLAC PSC TIC/DX INJECTION SUBQ/IM IIV3 VACC 47251 A Alanis PRAKASH 5 ED ROMERO JEBasil PRESERVAT PSC MELLISSA FREE 0.5 ML DOSAGE IM USE IM ADM 09286 A Alanis PRAKASH PRQ ID 5 ED ROMERO JEBasil SUBQ/IM PSC NJXS 1 VACCINE INJ J0702 A Alanis PRAKASH BETAMETHA 5 ED ROMERO JEBasil SONE PSC ACETATE & PHOSPHATE 3 MG INJECTION J1030 A Alanis PRAKASH 5 ED SORIA METHYLPRE PSC DNISOLONE ACETATE 40 MG THERAPEUT 73840 A Alanis PRAKASH IC 5 ED ROMERO JEA PROPHYLAC PSC TIC/DX INJECTION SUBQ/IM OPHTH 86871 JEANNETTE [facility] 4 GRE GRE XM&EVAL COMPRE NEW PT 1/> VST DETERMINA 41598 JEANNETTE JEANNETTE TION 4 GRE GRE REFRACTIV E STATE RADEX ABD 15670 MARV MARV COMPL 4 ANTOINETTE ANTOINETTE AQT ABD W/S/E/D VIEWS 1 VIEW CH Encounters Encounter Start End Date Code Location Performer Type Date OFFICE 31272 A Alanis DENNEY 7 7 ED ROMERO T VISIT [facility] 15 [facility]UTES [facility] T OFFICE 69598 A Alanis PRAKASH OUTPATIEN 7 7 ED ROMERO T VISIT [facility]ES [facility] T OFFICE 92376 [facility] DENNEY 7 7 [facility] T VISIT 5 INC MINUTES OFFICE 79020 A Alanis DUPONT OUTPATIEN 6 6 ED ROMERO T VISIT PSC 15 MINUTES OFFICE 69429 A Alanis DUPONT OUTELLI 6 6 ED ROMERO T VISIT PSC 15 MINUTES OFFICE 77037 A C JOAQUIN KIAH OUTPATIEN 6 6 ED ROMERO T VISIT PSC 15 MINUTES OFFICE 36747 A C KILPELA OUTPATIEN 5 5 ED SORIA T VISIT PSC 15 MINUTES OFFICE 25605 A C KILPELA OUTPATIEN 5 5 ED SORIA T VISIT PSC 15 MINUTES OFFICE 70960 A C KILPELA OUTPATIEN 5 5 ED SORIA T VISIT PSC 15 MINUTES OFFICE 93760 A C KILPELA OUTPATIEN 5 5 ED SORIA T VISIT PSC 15 MINUTES OFFICE 35865 A C JOAQUIN KIAH OUTPATIEN 5 5 ED ROMERO T VISIT PSC 15 MINUTES OFFICE 64851 A C JOAQUIN KIAH OUTPATIEN 4 4 ED ROMERO T VISIT PSC 10 MINUTES OFFICE 12396 JOAQUIN KIAH JOAQUIN KIAH OUTPATIEN 4 4 T VISIT 15 MINUTES OFFICE 87197 JOAQUIN KIAH MULLENES KIAH OUTPATIEN 4 4 T VISIT 15 MINUTES OFFICE 97902 JOAQUIN KIAH JOAQUIN KIAH OUTPATIEN 4 4 T VISIT 15 MINUTES OFFICE 62648 JOAQUIN KIAH JOAQUIN KIAH OUTPATIEN 4 4 T VISIT 15 MINUTES EMERGENCY 29838 HARSHA MCLEOD 4 4 CORBY CORBY DEPARTMEN T VISIT HIGH/URGE NT SEVERITY
--- OUTSIDE RECORDS SUMMARY | 2017-01-10 21:56 | External Medical Summary Rpt ---
Demographics Preferred Language Setswana Marital Status Unknown Samaritan Affiliation Unknown Race Unknown Ethnic Group Unknown Author Author , BENTON BHARDWAJ Address Unknown Phone Immunization Unable to retrieve immunization data due to connection failure with Immunization Registry. Please try again later.
== END 2017-01-08 18:44 | disposition home or self-care (01) ==
LOC: UTC 17:49
DX: M62.838 Other muscle spasm (principal); Z72.0 Tobacco use